=== PATIENT | male | born 1955 ===

== ENCOUNTER 2017-10-17 13:59 | Emergency (ER) | payer MEDICAID ==
[2017-10-17 14:12] VITALS: RESP 16; TEMP 98
--- NOTE | 2017-10-17 15:43 | ED PDOC ---
HPI: Hypertension/Hypotension Time Seen by Provider: 10/17/17 15:34 Chief Complaint (Nursing): High Blood Pressure Chief Complaint (Provider): Headache History Per: Patient History/Exam Limitations: no limitations Onset/Duration Of Symptoms: Days Current Symptoms Are (Timing): Still Present Associated Symptoms: Headache Additional History Per: Patient Additional Complaint(s): 62yo male with history of hypertension, presents to ED with complaints of headache, increasing for the past 2 weeks. Patient states he is concerned about his blood pressure as he has not taken medication for many months since he ran out. Patient states he was also informed he is pre-diabetic but is not on any medication regiment. Patient denies any weakness, chest pain, shortness of breath. He has no other medical complaints. PMD: [facility] Past Medical History Reviewed: Historical Data, Nursing Documentation, Vital Signs Vital Signs: Last Vital Signs Temp 98.0 F 10/17/17 14:09 Pulse 72 10/17/17 14:09 Resp 16 10/17/17 14:09 BP 229/114 H 10/17/17 14:09 Pulse Ox 99 10/17/17 14:09 - Medical History PMH: HTN - Surgical History Other surgeries: brain surgery for hematoma - Family History Family History: States: Unknown Family Hx - Home Medications Home Medications: Ambulatory Orders Medication Instructions Recorded Ibuprofen [Motrin] 600 mg PO Q6 PRN #20 tab 01/01/15 Oxycodone HCl/Acetaminophen 1 tab PO Q4 #10 tab 01/01/15 [Percocet 325 mg-5 mg] hydroCHLOROthiazide [Hydrodiuril] 25 mg PO DAILY #30 tab 10/17/17 - Allergies Allergies/Adverse Reactions: Allergies Allergy/AdvReac Type Severity Reaction Status Date / Time No Known Allergies Allergy Verified 10/17/17 14:09 Review of Systems ROS Statement: Except As Marked, All Systems Reviewed And Found Negative (as per HPI) Neurological: Positive for: Headache Physical Exam - Reviewed Nursing Documentation Reviewed: Yes Vital Signs Reviewed: Yes - Physical Exam Appears: Positive for: Non-toxic, No Acute Distress Head Exam: Positive for: ATRAUMATIC, NORMOCEPHALIC Skin: Positive for: Warm, Dry Eye Exam: Positive for: EOMI, PERRL ENT: Negative for: Pharyngeal Erythema, Tonsillar Exudate Neck: Positive for: Painless ROM, Supple Cardiovascular/Chest: Positive for: Regular Rate, Rhythm, Chest Non Tender. Negative for: Murmur Respiratory: Positive for: Normal Breath Sounds. Negative for: Wheezing Gastrointestinal/Abdominal: Positive for: Soft. Negative for: Tenderness Back: Positive for: Normal Inspection. Negative for: Decreased ROM Extremity: Positive for: Normal ROM. Negative for: Deformity Lymphatic: Negative for: Adenopathy Neurologic/Psych: Positive for: Alert. Negative for: Motor/Sensory Deficits - Laboratory Results Result Diagrams: 10/17/17 16:00 10/17/17 16:00 - ECG O2 Sat by Pulse Oximetry: 99 (RA) Pulse Ox Interpretation: Normal - Radiology X-Ray: Interpreted by Ut X-Ray Interpretation: No Acute Disease Medical Decision Making Medical Decision Making: Impression: Headache, hypertension Differential: Hypertensive encephalopathy, renal disease, electrolyte abnormality Plan: -- CT Head w/o contrast -- Labs Accession No. : [id number] Patient Name / ID : PRASANNA Newell / [id number] Exam Date : 10/17/2017 16:03:52 ( Approved ) Study Comment : Sex / Age : M / 62Y Creator : Alex Barnes MD Dictator : Alex Barnes MD Sugar Presser : Stacking Machine Operator : Alex Barnes MD Approver2 : Report Date : 10/17/2017 16:41:23 My Comment : PROCEDURE: CT HEAD WITHOUT CONTRAST. HISTORY: Headaches, hypertension. COMPARISON: 04/19/2014. TECHNIQUE: Axial computed tomography images were obtained through the head/brain without intravenous contrast. Coronal and sagittal reconstructed images. Radiation dose: Total exam DLP = 83.38 mGy-cm. This CT exam was performed using one or more of the following dose reduction techniques: Automated exposure control, adjustment of the mA and/or kV according to patient size, and/or use of iterative reconstruction technique. FINDINGS: HEMORRHAGE: No intracranial hemorrhage. BRAIN: No mass effect or edema. Symmetrical of frontal atrophy. VENTRICLES: Unremarkable. No hydrocephalus. CALVARIUM: Stable craniotomy findings. PARANASAL SINUSES: Unremarkable as visualized. No significant inflammatory changes. MASTOID AIR CELLS: Unremarkable as visualized. No inflammatory changes. OTHER FINDINGS: None. IMPRESSION: No acute intracranial abnormalities. No significant findings to account for the clinical presentation. No significant interval change compared to the prior examination(s). 530p Labs without any emergently significant abnormalities 6p Labetalol given with improvement of BP Stable for DC with FP follow up. Scribe Attestation: Documented by Corinna Land acting as a scribe for Carolann Luna MD. Provider Attestation: All medical record entries made by the Scribe were at my direction and personally dictated by me. I have reviewed the chart and agree that the record accurately reflects my personal performance of the history, physical exam, medical decision making, and the department course for this patient. I have also personally directed, reviewed, and agree with the discharge instructions and disposition. Disposition - Clinical Impression Clinical Impression: Hypertension - Disposition Referrals: [facility] [Outside] - 10/18/17 Disposition: Routine/Home Disposition Time: 17:57 Condition: IMPROVED Additional Instructions: VISITA A LA CLINICA EN 2-3 ARAGON A CHEQAR DE NUEVO Prescriptions: hydroCHLOROthiazide [Hydrodiuril] 25 mg PO DAILY #30 tab Instructions: Hypertension (ED), DASH Eating Plan (ED) Print Language: TURKS [place]
[2017-10-17 16:10] LABS: BASO % 0.7 % (0.0-2.0); EOS % 1.2 % (0.0-4.0); LYMPH # 0.8 K/uL (1.0-4.3); LYMPH % 22.4 % (20.0-40.0); MEAN CELL VOLUME 93.2 fl (80.0-94.0); MEAN CORPUSCULAR HEMOGLOBIN 31.6 pg (27.0-31.0); MEAN CORPUSCULAR HGB CONC 33.9 g/dL (33.0-37.0); MEAN PLATELET VOLUME 8.4 fl (7.2-11.7); MONO # 0.4 K/uL (0.0-0.8); MONO % 10.8 % (0.0-10.0); NEUT # 2.4 K/uL (1.8-7.0); NEUT % 64.9 % (50.0-75.0); NRBC % 1.3 % (0.0-0.0); RBC 4.73 Mil/uL (4.40-5.90); RED CELL DISTRIBUTION WIDTH 12.7 % (11.5-14.5); WHITE BLOOD COUNT 3.8 K/uL (4.8-10.8)
[2017-10-17 16:23] LABS: INR 1.1 (0.9-1.2); PARTIAL THROMBOPLASTIN TIME 36.7 Seconds (25.6-37.1); PROTHROMBIN TIME 12.6 Seconds (9.8-13.1)
[2017-10-17 16:27] LABS: ALB/GLOB RATIO 1.1 (1.0-2.1); ALBUMIN 4.2 g/dL (3.5-5.0); ALT/SGPT 59 U/L (21-72); AST/SGOT 69 U/L (17-59); BLOOD UREA NITROGEN 9 mg/dl (9-20); CALCIUM 8.9 mg/dL (8.4-10.2); GFR AFRICAN-AMERICAN > 60; GFR NON-AFRICAN AMERICAN > 60; MAGNESIUM 1.7 MG/DL (1.6-2.3)
[2017-10-17 16:39] LABS: B-TYPE NATRIURETIC PEPTIDE 137 pg/ml (0-900)
--- NOTE | 2017-10-17 16:43 | CT ---
PROCEDURE: CT HEAD WITHOUT CONTRAST. HISTORY: Headaches, hypertension. COMPARISON: 04/19/2014. TECHNIQUE: Axial computed tomography images were obtained through the head/brain without intravenous contrast. Coronal and sagittal reconstructed images. Radiation dose: Total exam DLP = 83.38 mGy-cm. This CT exam was performed using one or more of the following dose reduction techniques: Automated exposure control, adjustment of the mA and/or kV according to patient size, and/or use of iterative reconstruction technique. FINDINGS: HEMORRHAGE: No intracranial hemorrhage. BRAIN: No mass effect or edema. Symmetrical of frontal atrophy. VENTRICLES: Unremarkable. No hydrocephalus. CALVARIUM: Stable craniotomy findings. PARANASAL SINUSES: Unremarkable as visualized. No significant inflammatory changes. MASTOID AIR CELLS: Unremarkable as visualized. No inflammatory changes. OTHER FINDINGS: None. IMPRESSION: No acute intracranial abnormalities. No significant findings to account for the clinical presentation. No significant interval change compared to the prior examination(s).
[2017-10-17] MEDS ORDERED: Labetalol 5 mg/ml Inj 20ML IVP STA (17:47)
[2017-10-17] MEDS ORDERED: Labetalol 5mg/ml (4ml) ONE (17:52)
[2017-10-17 17:57] VITALS: O2SAT 99
[2017-10-17 18:12] LABS: BARBITURATES, UR NEGATIVE (NEGATIVE); BENZODIAZEPINES, UR NEGATIVE (NEGATIVE); OPIATES, UR NEGATIVE (NEGATIVE); PHENCYCLIDINE, UR NEGATIVE (NEGATIVE)
[2017-10-17 18:48] VITALS: BP 183/111; PULSE 75
== END 2017-10-17 18:50 | disposition home or self-care (01) ==
LOC: H.ER 13:59
DX: I10 Essential (primary) hypertension (principal)

== ENCOUNTER 2018-09-10 17:08 | Emergency (ER) | payer MEDICAID ==
[2018-09-10] MEDS ORDERED: DiphenhydrAMINE 50 mg/ml Inj IVP STA (21:58)
--- NOTE | 2018-09-10 22:20 | ED PDOC ---
HPI: Skin/Bite Injury Time Seen by Provider: 09/10/18 21:41 Chief Complaint (Nursing): Abnormal Skin Integrity Chief Complaint (Provider): Rash History Per: Patient History/Exam Limitations: no limitations Onset/Duration Of Symptoms: Days (x4) Current Symptoms Are (Timing): Still Present Additional Complaint(s): Patient is a 62 y/o male with a PMHx of HTN who presents to the ED for evaluation of rashes, ongoing for the past four days. Patient reports the rash started on left lower leg and spread to the rest of the body. Patient states the rashes are red, itchy patches. Patient also reports of an ongoing cough for the past week. Patient denies fever or swelling. Patient claims to have no recent exposure to new soaps, food, detergents, animals, or insects. In addition, patient has no known sick contacts. Of note, patient admits he has not seen a doctor in a long time and that he takes no medication for his HTN. PCP: [facility] Past Medical History Reviewed: Historical Data, Nursing Documentation, Vital Signs Vital Signs: Last Vital Signs Temp 97.9 F 09/10/18 19:49 Pulse 74 09/10/18 22:08 Resp 18 09/10/18 19:49 BP 213/125 H 09/10/18 22:08 Pulse Ox 99 09/10/18 19:49 - Medical History PMH: HTN - Surgical History Surgical History: No Surg Hx - Family History Family History: States: Hypertension - Social History Current smoker - smoking cessation education provided: No Alcohol: < 2 Drinks/Day (3-4 Beers, Maybe more) Drugs: Denies - Home Medications Home Medications: Ambulatory Orders Medication Instructions Recorded Ibuprofen [Motrin] 600 mg PO Q6 PRN #20 tab 01/01/15 Oxycodone HCl/Acetaminophen 1 tab PO Q4 #10 tab 01/01/15 [Percocet 325 mg-5 mg] RX: hydroCHLOROthiazide 25 mg PO DAILY #30 tab 10/17/17 [Hydrodiuril] DiphenhydrAMINE [Benadryl] 50 mg PO Q12 PRN #12 cap 09/11/18 RX: predniSONE [predniSONE Tab] 60 mg PO DAILY #9 tab 09/11/18 - Allergies Allergies/Adverse Reactions: Allergies Allergy/AdvReac Type Severity Reaction Status Date / Time No Known Allergies Allergy Verified 10/17/17 14:09 Review of Systems ROS Statement: Except As Marked, All Systems Reviewed And Found Negative (as per HPI) Constitutional: Negative for: Fever Respiratory: Positive for: Cough Skin: Positive for: Rash (red patches that are itchy). Negative for: Other (swelling) Physical Exam - Reviewed Nursing Documentation Reviewed: Yes Vital Signs Reviewed: Yes - Physical Exam Appears: Positive for: No Acute Distress, Uncomfortable Head Exam: Positive for: ATRAUMATIC, NORMAL INSPECTION, NORMOCEPHALIC Skin: Positive for: Normal Color (Non-blanching red lesions of various ages and size on extremities and trunk; Face, palm, and soles are spared of rash) Eye Exam: Positive for: EOMI, PERRL. Negative for: Scleral icterus ENT: Positive for: Other (tacky mucous membrane) Neck: Positive for: Painless ROM, Supple Cardiovascular/Chest: Positive for: Regular Rate, Rhythm. Negative for: Murmur Gastrointestinal/Abdominal: Positive for: Soft (Protuberant), Tenderness (RUQ). Negative for: Mass, Guarding, Rebound Back: Positive for: Normal Inspection. Negative for: Decreased ROM Extremity: Positive for: Normal ROM. Negative for: Deformity Lymphatic: Negative for: Adenopathy Neurologic/Psych: Positive for: Alert. Negative for: Motor/Sensory Deficits - Laboratory Results Result Diagrams: 09/10/18 22:22 09/10/18 22:22 - ECG O2 Sat by Pulse Oximetry: 99 (RA) Pulse Ox Interpretation: Normal Medical Decision Making Medical Decision Making: Time: 2200 Impression: Petechial rash and Severe HTN. DDx includes but not limited to dermatitis, liver dysfunction, and malignant HTN. Plan: Type and Screen EKG Alcohol Serum Ammonia BNP CMP Lipase Magnesium Phosphorus Troponin I Urine Dipstick CBC PTT Prothrombin Time Glucose, POC Benadry 25 mg IVP Catapres 0.1 mg PO Can Slider IV Insertion (Saline Lock) Glucose, Blood, POC ------ Scribe Attestation: Documented by Carlos Hernandez, acting as a scribe for Carolann Luna MD. Provider Scribe Attestation: All medical record entries made by the Scribe were at my direction and personally dictated by me. I have reviewed the chart and agree that the record accurately reflects my personal performance of the history, physical exam, medical decision making, and the department course for this patient. I have also personally directed, reviewed, and agree with the discharge instructions and disposition. Disposition - Clinical Impression Clinical Impression: Fatty liver, Rash - Disposition Disposition: Transfer of Care Disposition Time: 00:00 Condition: STABLE Prescriptions: DiphenhydrAMINE [Benadryl] 50 mg PO Q12 PRN #12 cap PRN Reason: Itching / Pruritus RX: predniSONE [predniSONE Tab] 60 mg PO DAILY #9 tab Patient Signed Over To: Reg Alcaraz Handoff Comments: Pending US and final ER disposition
[2018-09-10 22:41] LABS: BASO % 1.1 % (0.0-2.0); EOS # 0.1 K/uL (0.0-0.7); EOS % 1.6 % (0.0-4.0); HEMOGLOBIN 15.5 g/dL (12.0-18.0); LYMPH # 1.2 K/uL (1.0-4.3); MEAN CELL VOLUME 93.8 fl (80.0-94.0); MEAN CORPUSCULAR HEMOGLOBIN 31.5 pg (27.0-31.0); MEAN CORPUSCULAR HGB CONC 33.6 g/dL (33.0-37.0); MEAN PLATELET VOLUME 8.2 fl (7.2-11.7); MONO # 0.4 K/uL (0.0-0.8); MONO % 11.9 % (0.0-10.0); NEUT % 53.4 % (50.0-75.0); NRBC % 0.1 % (0.0-0.0); RBC 4.9 Mil/uL (4.40-5.90); RED CELL DISTRIBUTION WIDTH 13.4 % (11.5-14.5); WHITE BLOOD COUNT 3.8 K/uL (4.8-10.8)
[2018-09-10 22:46] LABS: INR 1.1; PROTHROMBIN TIME 12.9 Seconds (9.8-13.1)
[2018-09-10 22:48] LABS: PARTIAL THROMBOPLASTIN TIME 36.4 Seconds (25.6-37.1)
[2018-09-10 22:51] LABS: ALB/GLOB RATIO 1.1 (1.0-2.1); ALBUMIN 4.5 g/dL (3.5-5.0); ALT/SGPT 80 U/L (21-72); AST/SGOT 73 U/L (17-59); BLOOD UREA NITROGEN 14 mg/dl (9-20); CALCIUM 9.3 mg/dL (8.4-10.2); GFR NON-AFRICAN AMERICAN > 60; LIPASE 126 U/L (23-300)
[2018-09-10 23:04] LABS: B-TYPE NATRIURETIC PEPTIDE 557 pg/ml (0-900)
[2018-09-11 00:51] VITALS: TEMP 98.5
--- NOTE | 2018-09-11 00:58 | ED PDOC ---
- Laboratory Results Result Diagrams: 09/10/18 22:22 09/10/18 22:22 Lab Results: PT 12.9 Seconds (9.8-13.1) 09/10/18 22:22 INR 1.1 09/10/18 22:22 APTT 36.4 Seconds (25.6-37.1) 09/10/18 22:22 Troponin I < 0.0120 ng/mL (0.00-0.120) 09/10/18 22:22 NT-Pro-B Natriuret Pep 557 pg/ml (0-900) 09/10/18 22:22 Total Bilirubin 1.7 mg/dl (0.2-1.3) H 09/10/18 22:22 AST 73 U/L (17-59) H 09/10/18 22:22 ALT 80 U/L (21-72) H D 09/10/18 22:22 Alkaline Phosphatase 101 U/L (38-126) 09/10/18 22:22 Total Protein 8.6 G/DL (6.3-8.2) H 09/10/18 22:22 Albumin 4.5 g/dL (3.5-5.0) 09/10/18 22:22 Globulin 4.1 gm/dL (2.2-3.9) H 09/10/18 22:22 Albumin/Globulin Ratio 1.1 (1.0-2.1) 09/10/18 22:22 Lipase 126 U/L (23-300) 09/10/18 22:22 - ECG O2 Sat by Pulse Oximetry: 97 (RA) Pulse Ox Interpretation: Normal Medical Decision Making Medical Decision Making: Time: 00:00 Patient care endorsed from Dr. Luna to provider pending US. 01:46 US Abd FINDINGS: LIVER: The liver is demonstrates increased echogenicity compatible with fatty infiltration. No discrete Hepatic mass is seen. 2.6 cm right hepatic lobe cyst is seen. GALLBLADDER: No gallstone. No gallbladder wall thickening. No pericholecystic fluid. COMMON BILE DUCT: No dilation. 4.5 mm. PANCREAS: Unremarkable where visualized. The distal pancreas is obscured by overlying bowel gas. KIDNEYS: Numerous bilateral renal cysts compatible with ADPKD. SPLEEN: Unremarkable. AORTA: No aneurysm. IVC: Unremarkable as visualized. MISCELLANEOUS: No other significant findings identified. IMPRESSION: 1. The liver is demonstrates increased echogenicity compatible with fatty infiltration. No discrete 2. Hepatic mass is seen. 2.6 cm right hepatic lobe cyst is seen. 3. Numerous bilateral renal cysts compatible with ADPKD. Patient feeling better upon discharge Lectured patient about adequate blood pressure control ADvised patient that he needs to followup as soon as possible Well appearing upon discharge Scribe Attestation: Documented by Jordan Abdi acting as a scribe for Reg Alcaraz MD. Provider Scribe Attestation: All medical record entries made by the Scribe were at my direction and personally dictated by me. I have reviewed the chart and agree that the record accurately reflects my personal performance of the history, physical exam, me dical decision making, and the department course for this patient. I have also personally directed, reviewed, and agree with the discharge instructions and disposition. Disposition - Clinical Impression Clinical Impression: Fatty liver, Rash - POA Present On Arrival: None - Disposition Disposition: Routine/Home Disposition Time: 01:45 Condition: STABLE Prescriptions: DiphenhydrAMINE [Benadryl] 50 mg PO Q12 PRN #12 cap PRN Reason: Itching / Pruritus predniSONE [predniSONE Tab] 60 mg PO DAILY #9 tab Instructions: Skin Rash (DC), Nonalcoholic Fatty Liver Disease (DC) Forms: [employer] (Tongan)
[2018-09-11 02:08] VITALS: RESP 17
[2018-09-11 03:00] VITALS: BP 148/100; PULSE 67
--- NOTE | 2018-09-11 11:30 | US ---
Date of service: 09/11/2018 HISTORY: RUQ pain COMPARISON: None. Comparison made with prior CT scan abdomen and pelvis dated 12/31/2014 and abdominal ultrasound dated 2007. TECHNIQUE: Sonographic evaluation of the abdomen. FINDINGS: LIVER: Measures 14 cm in length. Smooth contour however increased parenchymal echotexture consistent with fatty infiltration; other infiltrative hepatocellular disease process not excluded.. There is a discrete cyst seen right lobe liver measuring up to 3 cm in greatest dimension.. Additional previously noted multiple hepatic cysts are less well seen compared to high-resolution CT scan. Please refer to that study for additional details. No intrahepatic bile duct dilatation. GALLBLADDER: Unremarkable. No gallstones. No pericholecystic fluid collections or sonographic Summers sign COMMON BILE DUCT: Measures 4.5 mm. No stones. No dilatation. PANCREAS: Unremarkable as visualized. No mass. No ductal dilatation. RIGHT KIDNEY: Measures 15.5 x 7.4 x 9.6cm. Numerous varying size cysts are present consistent with polycystic kidney disease. LEFT KIDNEY: Measures 16.6 x 8.0 x 8.5 cmcm. Numerous cysts are present consistent with polycystic kidney disease SPLEEN: Normal in size and contour. No mass. AORTA: No aneurysmal dilatation. IVC: Unremarkable. OTHER FINDINGS: None. IMPRESSION: Enlarged kidneys exhibiting numerous cysts consistent with adult polycystic kidney disease. At least 1 hepatic cyst visible present on this study however numerous hepatic cyst or visible on prior CT scan. Increased at patent echotexture likely representing fatty infiltration however other infiltrative hepatocellular disease process not excluded.
--- NOTE | 2018-09-11 19:48 | CARD ---
APPROVED REPORT Date of service: 09/10/2018 EKG Measurement Heart [id number] ID [id number] <Conclusion> Normal sinus rhythm Normal ECG
[2018-09-13 21:23] VITALS: O2SAT 99
== END 2018-09-11 03:00 | disposition home or self-care (01) ==
LOC: H.ER 17:08
DX: K76.0 Fatty (change of) liver, not elsewhere classified (principal); R21 Rash and other nonspecific skin eruption; I10 Essential (primary) hypertension; K76.89 Other specified diseases of liver
CPT/HCPCS: 76705; 80053; 80320; 82140; 82948; 83690; 83735; 83880; 84100; 84484; 85025; 85610; 85730; 86850; 86900; 93005; 96374; 99285; J1200; J2930

== ENCOUNTER 2018-09-27 16:55 | Emergency (ER) | payer MEDICAID ==
[2018-09-27] MEDS ORDERED: Sodium Chloride 0.9% 1,000 ML IV STA (17:40)
--- NOTE | 2018-09-27 17:40 | ED PDOC ---
HPI: Headache Time Seen by Provider: 09/27/18 17:26 Chief Complaint (Nursing): Headache Chief Complaint (Provider): Headache History Per: Patient History/Exam Limitations: no limitations Onset/Duration Of Symptoms: Days (x3) Additional Complaint(s): 62 y/o male with PMHx of HTN and previous brain surgery "with something taken out" due to frequent falls presents to the ED with x3 days of worsening headache and generalized weakness. Patient saw his PMD who said he had very high blood pressure and needed to go to the ED for CT and further workup. Patient denies nausea, vomiting, difficulty walking, numbness, or tingling. Past Medical History Reviewed: Historical Data, Nursing Documentation, Vital Signs Vital Signs: Last Vital Signs Temp 98.1 F 09/27/18 17:07 Pulse 102 H 09/27/18 17:07 Resp 18 09/27/18 17:07 BP 152/101 H 09/27/18 17:07 Pulse Ox 99 09/27/18 17:07 - Medical History PMH: HTN, Chronic Kidney Disease (PKD) - Surgical History Other surgeries: Brain surgery - Family History Family History: States: Unknown Family Hx, Hypertension - Home Medications Home Medications: Ambulatory Orders Medication Instructions Recorded Ibuprofen [Motrin] 600 mg PO Q6 PRN #20 tab 01/01/15 Oxycodone HCl/Acetaminophen 1 tab PO Q4 #10 tab 01/01/15 [Percocet 325 mg-5 mg] RX: hydroCHLOROthiazide 25 mg PO DAILY #30 tab 10/17/17 [Hydrodiuril] DiphenhydrAMINE [Benadryl] 50 mg PO Q12 PRN #12 cap 09/11/18 RX: predniSONE [predniSONE Tab] 60 mg PO DAILY #9 tab 09/11/18 - Allergies Allergies/Adverse Reactions: Allergies Allergy/AdvReac Type Severity Reaction Status Date / Time No Known Allergies Allergy Verified 10/17/17 14:09 Review of Systems ROS Statement: Except As Marked, All Systems Reviewed And Found Negative Constitutional: Positive for: Weakness Gastrointestinal: Negative for: Nausea, Vomiting Neurological: Positive for: Headache. Negative for: Numbness, Other (tingling) Physical Exam - Reviewed Nursing Documentation Reviewed: Yes Vital Signs Reviewed: Yes - Physical Exam Appears: Positive for: Well, Non-toxic, No Acute Distress Head Exam: Positive for: ATRAUMATIC, NORMAL INSPECTION, NORMOCEPHALIC Skin: Positive for: Normal Color, Warm, Dry Eye Exam: Positive for: EOMI, Normal appearance, PERRL ENT: Positive for: Normal ENT Inspection Neck: Positive for: Normal, Painless ROM Cardiovascular/Chest: Positive for: Regular Rate, Rhythm, Tachycardia (mild tachycardia on triage). Negative for: Murmur Respiratory: Positive for: Normal Breath Sounds. Negative for: Respiratory Distress Gastrointestinal/Abdominal: Positive for: Normal Exam, Soft. Negative for: Tenderness Back: Positive for: Normal Inspection Extremity: Positive for: Normal ROM. Negative for: Pedal Edema, Deformity Neurologic/Psych: Positive for: Alert, program research specialist II-XII (grossly intact), Oriented, Mood/Affect (flat), Cerebellar Tests (intact), Gait (steady), Other (full strenght; NIH stroke scale of zero). Negative for: Motor/Sensory Deficits, Aphasia, Facial Droop - Laboratory Results Result Diagrams: 09/27/18 18:05 09/27/18 18:05 - ECG O2 Sat by Pulse Oximetry: 99 (RA) Pulse Ox Interpretation: Normal Medical Decision Making Medical Decision Making: Time: 17:39 Initial Impression: workup for hypertensive emergency vs. stroke vs. benign headache Initial Plan: * Basic labs * EKG * Brain CT * Medications for elevated blood pressure * Tylenol and Reglan for headache * Reassess Time: 18:42 Headache resolved with IV fluids, Tylenol and Reglan. Labs and CT show no abnormalities. Patient will be discharged home and will follow up with neurologist and PMD. Scribe Attestation: Documented by Jordan Abdi, acting as a scribe for Karis Zepeda MD. Provider Scribe Attestation: All medical record entries made by the Scribe were at my direction and personally dictated by me. I have reviewed the chart and agree that the record accurately reflects my personal performance of the history, physical exam, medical decision making, and the department course for this patient. I have also personally directed, reviewed, and agree with the discharge instructions and disposition. Disposition - Clinical Impression Clinical Impression: Headache - Disposition Disposition Time: 18:42 Condition: IMPROVED Additional Instructions: Follow up with primary medical doctor and neurologist. Discuss high blood pressure with primary medical doctor. Return to the emergency department if sym ptoms worsen or if new symptoms develop. Take Tylenol or Motrin for headache and increase rest and hydration while symptoms last. Instructions: Headache, Adult (DC) Forms: [facility] (Croatian), [facility] (Lebanese) Print Language: GREEK
--- NOTE | 2018-09-27 18:10 | CT ---
Date of service: 09/27/2018 PROCEDURE: CT HEAD WITHOUT CONTRAST. HISTORY: headache COMPARISON: Comparison is made to the previous study dated 10/17/2017 TECHNIQUE: Axial computed tomography images were obtained through the head/brain without intravenous contrast. Radiation dose: Total exam DLP = 811.38 mGy-cm. This CT exam was performed using one or more of the following dose reduction techniques: Automated exposure control, adjustment of the mA and/or kV according to patient size, and/or use of iterative reconstruction technique. FINDINGS: HEMORRHAGE: No intracranial hemorrhage. BRAIN: No mass effect or edema. [id number] volume loss is again noted. VENTRICLES: Unremarkable. No hydrocephalus. CALVARIUM: Post craniotomy changes at the frontal bones are again noted. PARANASAL SINUSES: Unremarkable as visualized. No significant inflammatory changes. MASTOID AIR CELLS: Unremarkable as visualized. No inflammatory changes. OTHER FINDINGS: None. IMPRESSION: No evidence of acute intracranial hemorrhage intracranial collection mass effect or midline shift.
[2018-09-27 18:18] LABS: BASO # 0.1 K/uL (0.0-0.2); BASO % 1.6 % (0.0-2.0); EOS # 0.1 K/uL (0.0-0.7); EOS % 2.5 % (0.0-4.0); LYMPH # 1.3 K/uL (1.0-4.3); LYMPH % 36.4 % (20.0-40.0); MEAN CELL VOLUME 93.5 fl (80.0-94.0); MEAN CORPUSCULAR HGB CONC 33.2 g/dL (33.0-37.0); MONO # 0.4 K/uL (0.0-0.8); NEUT # 1.8 K/uL (1.8-7.0); NEUT % 48.5 % (50.0-75.0); RBC 4.84 Mil/uL (4.40-5.90); RED CELL DISTRIBUTION WIDTH 12.8 % (11.5-14.5); WHITE BLOOD COUNT 3.7 K/uL (4.8-10.8)
[2018-09-27 18:38] LABS: BLOOD UREA NITROGEN 17 mg/dl (9-20); CALCIUM 9.2 mg/dL (8.4-10.2); GFR NON-AFRICAN AMERICAN 48
[2018-09-27 18:54] VITALS: BP 132/74; PULSE 88; RESP 20; TEMP 98.3
--- NOTE | 2018-09-27 18:59 | RAD ---
Date of service: 09/27/2018 HISTORY: possible admission COMPARISON: Chest radiograph dated 03/08/2014. FINDINGS: LUNGS: No active pulmonary disease. PLEURA: No significant pleural effusion identified, no pneumothorax apparent. CARDIOVASCULAR: Aortic atherosclerotic calcifications. Cardiomediastinal silhouette within normal limits. OSSEOUS STRUCTURES: Unchanged. VISUALIZED UPPER ABDOMEN: Normal. OTHER FINDINGS: None. IMPRESSION: No active disease.
[2018-09-27 19:37] VITALS: O2SAT 99
--- NOTE | 2018-09-28 07:20 | CARD ---
APPROVED REPORT Date of service: 09/27/2018 EKG Measurement Heart [id number] <Conclusion> Normal sinus rhythm Normal ECG
== END 2018-09-27 19:00 | disposition home or self-care (01) ==
LOC: H.ER 16:55
DX: R51 Headache (principal); I12.9 Hypertensive chronic kidney disease with stage 1 through stage 4 chronic kidney disease, or unspecified chronic kidney disease
CPT/HCPCS: 70450; 71045; 80048; 84484; 85025; 93005; 96374; 99285; J2765; J7030